=== PATIENT | male | born 1935 ===

== ENCOUNTER 2020-07-01 17:06 | Outpatient (NON) | payer MEDICARE, SELFPAY ==
[2020-07-01 17:30] LABS: Add Urine Microscopic? YES; Appearance Urine Cloudy (Clear); Bilirubin Urine Negative (Negative); Blood Urine Negative (Negative); Color Urine Yellow (Yellow); Glucose Urine UA Negative (Negative); Ketones Urine Negative (Negative); Leukocyte Esterase Ur 3+ (Negative); Nitrate Urine Negative (Negative); Protein Urine Negative (Negative); Urobilinogen Urine 0.2 mg/dL (0.2-1.0); pH Urine 5.5 (5.0-8.0)
[2020-07-01 17:41] LABS: Bacteria Urine 1+ /hpf; Squamous Epithelial Cell Urine Moderate /hpf (Few); WBC Urine >75 /hpf (0-3)
== END 2020-07-01 17:07 ==
PROVIDERS: PCP Internal Medicine; Visit Provider Internal Medicine
DX: R30.0 Dysuria (principal)
CPT/HCPCS: 81001; 87086; 87088

== ENCOUNTER 2020-08-02 13:18 | Outpatient (NON) | payer MEDICARE, SELFPAY ==
[2020-08-02 13:33] LABS: Basophils Absolute Auto 0.04 K/mm3 (0.00-0.10); Basophils Percent Auto 0.8 % (0.0-1.0); Eosinophils Absolute Auto 0.16 K/mm3 (0.02-0.50); Hemoglobin 11.3 g/dL (12.4-15.3); Immature Granulocyte Absolute 0.03 K/mm3 (0.00-0.00); Immature Granulocyte Percent A 0.6 % (0.0-0.0); Lymphocytes Absolute Auto 1.41 K/mm3 (1.10-4.50); Lymphocytes Percent Auto 26.6 % (18.0-42.0); Mean Corpuscular HGB Conc 32.3 g/dL (32.0-36.0); Mean Corpuscular Hemoglobin 28.4 pg (27.0-31.0); Mean Corpuscular Volume 87.9 fL (78.0-102.0); Mean Platelet Volume 12.5 fl (8.7-11.0); Monocytes Absolute Auto 0.62 K/mm3 (0.10-0.90); Monocytes Percent Auto 11.7 % (2.0-11.0); Neutrophils Absolute Auto 3.1 K/mm3 (1.7-7.2); Neutrophils Percent Auto 57.3 % (50.0-70.0); Platelet Count Result 187 K/mm3 (150-420); Red Blood Count 3.98 M/mm3 (4.70-6.10); Red Cell Distribution Width 14.3 % (11.6-14.4); White Blood Count 5.3 K/mm3 (4.8-10.8)
[2020-08-02 13:36] LABS: Anion Gap 10 mmol/L (8-16); Blood Urea Nitrogen 71 mg/dL (7-18); Calcium 8.7 mg/dL (8.5-10.1); Carbon Dioxide 25 mmol/L (21-32); Chloride 102 mmol/L (98-108); Estimated Glomerular Filt Rate 25; Glucose 147 mg/dL (70-99); Osmolality Calculated 307 mOsm/kg (285-295); Potassium 4.6 mmol/L (3.5-5.1); Sodium 137 mmol/L (136-145)
== END 2020-08-02 13:19 | disposition home or self-care (01) ==
LOC: CHSLAB 13:20
PROVIDERS: PCP Internal Medicine; Visit Provider Internal Medicine Nephrology
DX: N18.32 Chronic kidney disease, stage 3b (principal); E11.21 Type 2 diabetes mellitus with diabetic nephropathy; N25.81 Secondary hyperparathyroidism of renal origin; I22.9 Subsequent ST elevation (STEMI) myocardial infarction of unspecified site
CPT/HCPCS: 36415; 80048; 85025